=== PATIENT | male | born 1960 | race Caucasian/White ===

== ENCOUNTER 2019-04-20 13:30 | Outpatient (RCR) | payer OTHER, SELFPAY ==
--- NOTE | 2019-04-02 08:33 | HP.OTEVAL ---
Patient's Visit Information PALMER RODRIGUEZ is a 59 year old M, referred to Occupational Therapy by Juice Rosa DO, with a diagnosis of bilateral basal thumb joint osteoarthritis. Date of Evaluation: 03/31/19 Occupational Therapist: DAMIEN Christiansen/Marcelina, CHT - Subjective Subjective: This 59 year old male was seen for OT eval with dx of bilateral cmc arthritis. Pt has been struggling with thumb pain for about a year or more. Pt states he has pain in his thumbs most of the time and when he uses his hands for daily tasks. 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 Pt states he is always fixing broken items and notices pain following use of hand tools. - Pain bilateral hands 3 Pain Intensity Range: 3, 6 - ROM Wrist: right 10 left 20 CMC: right 40 left 50 MP: right 60 left 70 - Strength Agricultural Technical Officer: right 70# left 95# Lateral Pinch: right 18# left 12# Tripod Pinch: right 14# left 14# Strength Comments: pain at bilateral cmc with resisitve strength testing. - Sensation Thumb: right 2.83 left 2.83 Index: right 2.83 left 2.83 Middle: right 2.83 left 2.83 Ring: right 2.83 left 2.83 Little: right 2.83 left 2.83 - Special Tests CMC Grind: positive - Quick DASH-Disab of Arm,Shoulder& Hand Quick DASH Score: 36.6650 - Goals Goal:: Pt will demo a increase in right electronics detail draftsperson strength to 85# with no incrase in thumb pain, to increase pts ind. with ADLs and IADLs by d/c Goal:: pt will report pain no greater than 1/10 with use of bilateral hands for ADls and IADls by d/c Goal:: Pt will demo understanding of joint protection and ergonomics when performing BADLs and IADLs by d/c. Pt will demo understanding of adaptive Equipment use to decrease stress on joints to allow pt to perform BADSL and IADLS at DELVIS level. - Rehabilitation General Assessment: pt demo with bilateral thumb OA deformities- Pts OA increase pain with use of bilateral hands with ADLs and IADLs. Pt would benefit from skilled OT services 1-2x week for 4 weeks to provide pt with ed. on joint protection, ad. eq., use of bilateral CMC braces/splints with heavy tasks and thumb stabilization ex. to decrease pts pain and return pt to PLOF. Today pt was ed. on CMC oateoarthritis, work ergo. and joint protection kerri. pt demo understanding and agree to POC. Rehabilitation Potential: Good - Anticipated Interventions Anticipated Interventions: A/AAROM/PROM, Strengthening, Triggerpoint Release, Modalities, Orthoses, Joint Protection/Energy Conservation, Ergonomic Education - Visit Plan Frequency: 1-2x /Week Duration: 4 Weeks TEXT: Thank you for the opportunity to evaluate your patient. For Medicare and Medicare HMO plans, please review the plan of care and approve it. It will need to be FAXED BACK to us at [phone] for Medicare purposes. Please let me know if there are questions or concerns regarding this plan of care. Physician Signature: Date:
--- NOTE | 2019-07-03 09:24 | HP.OTDCSUM ---
It has been my pleasure to treat PALMER RODRIGUEZ under orders from Dr. Juice Rosa, DO, for the diagnosis of bilateral basal thumb joint osteoarthritis for a total of 4 visit(s). Please see the following information for a summary of their discharge status. pt was seen for 4 OT visits and in need of ed. on joint protection, CMC thumb stabilization ex and use of orthosis with heavy daily tasks. Pt demo understanding of ex and use of orthosis. Pt has met OT goals and is D/C at this time. % Improvement: 80 Objective/Function: pt d/c Patient Goals: Regain Strength, Decrease Pain, Use Hand/Wrist/Arm Normally Again, Be More Independent in ADLS Goal:: Pt will demo a increase in right bioinformatics technician strength to 85# with no incrase in thumb pain, to increase pts ind. with ADLs and IADLs by d/c Goal:: pt will report pain no greater than 1/10 with use of bilateral hands for ADls and IADls by d/c Goal:: Pt will demo understanding of joint protection and ergonomics when performing BADLs and IADLs by d/c. Pt will demo understanding of adaptive Equipment use to decrease stress on joints to allow pt to perform BADSL and IADLS at DELVIS level. If there are questions or concerns regarding this patient's occupational therapy, please fell free to call me at [phone]. Thank you for the referral of this patient. Sincerely, Re Degroot, OTR/L, CHT
== END 2019-04-20 19:00 | disposition home or self-care (01) ==
LOC: OT 13:30
PROVIDERS: Referring Provider Orthopaedic Surgery; Visit Provider Orthopaedic Surgery
DX: G56.03 Carpal tunnel syndrome, bilateral upper limbs (principal); M18.0 Bilateral primary osteoarthritis of first carpometacarpal joints
CPT/HCPCS: 97110; 97140; 97166; 97530; 97760

== ENCOUNTER 2021-06-12 15:32 | Outpatient (RCR) | payer OTHER, SELFPAY ==
--- NOTE | 2021-06-13 07:36 | HP.OTDCSUM_ITS ---
It has been my pleasure to treat PALMER RODRIGUEZ under orders from Dr. Juice Rosa, DO, for the diagnosis of Unilateral primary osteoarthritis of first carpometacarpal joint, right for a total of 1 visit(s). Please see the following information for a summary of their discharge status. Objective/Function: Pt. has no specific deficits, more pain related to r epetitive use and use of smaller tools at work. Pt. stating his doctor will not complete CMC sx. until after he retires. Patient Goals: Decrease Pain, Use Hand/Wrist/Arm Normally Again, Resume Former Household Responsibilities (Cooking,Cleaning,Yard, etc.), Resume Hobbies If there are questions or concerns regarding this patient's occupational therapy, please fell free to call me at [phone]. Thank you for the referral of this patient. Sincerely, Re Degroot, OTR/L, CHT
--- NOTE | 2021-06-13 07:36 | HP.OTEVAL ---
Patient's Visit Information PALMER RODRIGUEZ is a 61 year old M, referred to Occupational Therapy by Dr. Juice Rosa DO, with a diagnosis of Unilateral primary osteoarthritis of first carpometacarpal joint, right. Date of Evaluation: 06/12/21 Occupational Therapist: Re Degroot, OTR/Marcelina, CHT - Subjective Pt. 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 His right thumb has bothered him for 5 years and is getting a shot in right thumb tomorrow 06-13-21. Pt. is here requesting a thumb orthoses for R thumb, that is similar to his L. He spends 2 days a week at [employer] and he enjoys golfing on the weekends. - ADLs Kitchen: Open jars, Open bottle caps Comments: All affects hand. Zero turn increases neck pain. Comments: and stays out of kitchen as much as possible. He is R hand dominant. Has rubber cloth for opening lids. - Pain Right Hand 4 Pain Intensity Range: 9 - Objective Pt. motivated to keep working, exercising, completing yard work, and golfing. - ROM Shoulder: B WFL Elbow: B WFL Forearm: B WFL - Strength Shoulder: B Good Elbow: B Good [employer] Clergy: L 80# R 65# Tripod Pinch: L 16# R 21# - Sensation Stereognosis: Normal - Right, Normal - Left Kinesthesia: Normal - Right, Normal - Left Proprioception: Normal - Right, Normal - Left Sensation Comments: Pt. declined any tingling unless he locks up his thumb. Otherwise no deficits with sensation. - Quick DASH-Disab of Arm,Shoulder& Hand Quick DASH Score: 43.3325 - Rehabilitation General Assessment: Pt. was presented to therapy for unilateral primary osteoarthritis of first carpometacarpal joint, right hand. Pt. requesting to have a thumb spica orthoses for wearing at night to prevent increased pain in right thumb. Pt. reported he will be getting a cortisone shot in R thumb on 06-13-21. CHT customized a R thumb spica orthoses for pt. S/OT provided pt. with HEP of CMC stability and reviewed with pt. Pt. will not require skilled OT services at this time. Therapy session was directly supervised doc. reviewed and approved by Re Degroot OTR/L, CHT. Rehabilitation Potential: Good - Anticipated Interventions Orthoses, Ergonomic Education, Education re Correct Donning Tech,Care&Wearing Sched Comp Garments, Home Program - Visit Plan General Plan: Pt. will not require skilled OT services at this time. TEXT: Thank you for the opportunity to evaluate your patient. For Medicare and Medicare HMO plans, please review the plan of care and approve it. It will need to be FAXED BACK to us at [phone] for Medicare purposes. Please let me know if there are questions or concerns regarding this plan of care. Physician Signature: Date:
== END 2021-06-12 19:00 | disposition home or self-care (01) ==
LOC: OT 15:32
PROVIDERS: PCP Family Medicine; Referring Provider Orthopaedic Surgery; Visit Provider Orthopaedic Surgery
DX: M18.11 Unilateral primary osteoarthritis of first carpometacarpal joint, right hand (principal)
CPT/HCPCS: 97110; 97165; 97760

== ENCOUNTER 2022-08-05 15:00 | Outpatient (RCR) | payer OTHER, SELFPAY ==
--- NOTE | 2022-07-29 17:03 | HP.OTEVAL_ITS ---
Patient's Visit Information PALMER RODRIGUEZ is a 62 year old M, referred to Occupational Therapy by Dr. Juice Rosa, , with a diagnosis of Idiopathic gout right hand. Date of Evaluation: 07/29/22 Occupational Therapist: Re Degroot, OTR/Marcelina, CHT - Subjective This 62 year old male was seen for OT eval with dx of Idiopathic gout right hand. pt states struggled with achy and stiffness- with sitting and going to move he struggles with mobility. stiffness and soreness limit him. Pt works for [employer]. pt states Dr. Rosa put him on z pack and has not noticed a change at this time. pt states weekend he was good. pt works 8 hour days 5 days a week. pt is hopeful to decrease stiffness and continue working as able. - ADLs Comments: pt states muscle cramping with increase use of bilateral hands- thumb pain etc. pt states he can do everything just uncomfortable or stiff. - Pain bilateral hands 3 Pain Intensity Range: 3, 6 - ROM Wrist: right 60/60 left 65/65 CMC: right 15 left 20 MP: right 45 left 40 IP: right 40 left 60 Radial Abduction: right 40* left 35* - Strength Acoustic Engineer: right 40# left 80# Lateral Pinch: right 14# left 10# Tripod Pinch: right 8# left 6# Strength Comments: pt demo with bilateral thumb instability with slight hyper ext of MPJ with resistance. - Sensation Sensation Comments: denies - Quick DASH-Disab of Arm,Shoulder& Hand Quick DASH Score: 35.0000 - Goals Goal:ROM equal to unaffected hand: Yes Goal:Acoustic Engineer/Pinch strength at least 75% of unaffected hand: Yes Goal:No pain with affected hand use: Yes Other Goal: joint protection kerri. Pt will demo understanding of work/lifting and carry ergonomics to decrease stress on tendons to increase pts independent with ADLs, IADLS and work tasks by d/c. Pt will demo understanding of using supportive bracing 80% of workday/ADLS to decrease stress on tendon origin to allow healing and decrease pain by end of 2nd session. - Rehabilitation General Assessment: pt demo need for skilled OT services1-2x week for 3-4 weeks to ed. pt on joint protection kerri. as well as adaptive ways to decrease stress on ligament/tendon structures. Rehabilitation Potential: Good - Anticipated Interventions A/AAROM/PROM, Strengthening, Triggerpoint Release, Modalities, Orthoses, Joint Protection/Energy Conservation, Ergonomic Education, Education re assistive Equipment, Education re Diagnosis, Home Program - Visit Plan Frequency: 1-2x /Week Duration: 2-4 Weeks TEXT: Thank you for the opportunity to evaluate your patient. For Medicare and Medicare HMO plans, please review the plan of care and approve it. It will need to be FAXED BACK to us at [phone] for Medicare purposes. Please let me know if there are questions or concerns regarding this plan of care. Physician Signature: Date:
--- NOTE | 2022-10-17 12:09 | HP.OT.NRP ---
Patient Information Patient Information: PALMER RODRIGUEZ was seen in my office for initial evaluation on 07/29/22. The following Plan of Care was established for this patient: POC Established Initial Frequency: 1-2x /Week Initial Duration: 2-4 Weeks Plan: Continue POC: 3-4 weeks (1-2x week) Anticipated Interventions Anticipated Interventions: A/AAROM/PROM, Strengthening, Triggerpoint Release, Modalities, Orthoses, Joint Protection/Energy Conservation, Ergonomic Education, Education re assistive Equipment, Education re Diagnosis and Home Program Last Seen Last Seen: This patient was last seen in our office 08/05/22. Pertinent comments regarding their Occupational therapy will appear below: pt was seen for 2 OT sessions with dx of OA . Therapy worked with philippe. of custom orthosis- as well as ed. on joint protection. At this time no further apts have been schedule and due to time lapse in services pt is d/c. At this point I will be discontinuing this patient from occupational therapy. I would be happy to see this patient again in the future if found appropriate by the physician. Thank you! Re Degroot, OTR/L, CHT
== END 2022-08-05 19:00 | disposition home or self-care (01) ==
LOC: OT 15:00
PROVIDERS: PCP Family Medicine; Referring Provider Orthopaedic Surgery; Visit Provider Orthopaedic Surgery
DX: M10.041 Idiopathic gout, right hand (principal)
CPT/HCPCS: 97035; 97166; 97530